=== PATIENT | female | born 2000 | race Caucasian/White ===

== ENCOUNTER 2020-01-04 16:25 | Emergency (ER) | payer MEDICAID, SELFPAY ==
[2020-01-04 16:56] VITALS: BP 120/80; PULSE 78; RESP 16; TEMP 36.3; O2SAT 100
[2020-01-04 17:15] LABS: Basophils Percent Auto 0.2 % (0.2-1.2); Eosinophils Absolute Auto 0.1 K/mm3 (0-0.3); Hematocrit 30.6 % (37.0-47.0); Hemoglobin 10.3 g/dL (12.0-15.0); Immature Granulocyte Absolute 0.04 K/mm3 (0.00-0.031); Immature Granulocyte Percent A 0.3 % (0-0.5); Lymphocytes Absolute Auto 2.47 K/mm3 (0.9-3.2); Lymphocytes Percent Auto 20.6 % (18.3-44.2); Mean Corpuscular HGB Conc 33.7 g/dl (32-36); Mean Corpuscular Hemoglobin 30.4 pg (26-34); Mean Corpuscular Volume 90.3 fl (80-100); Mean Platelet Volume 9.3 fl (7.4-10.4); Monocytes Absolute Auto 0.6 K/mm3 (0.1-0.6); Monocytes Percent Auto 5.2 % (2.6-8.5); Neutrophils Absolute Auto 8.7 K/mm3 (1.3-6.7); Neutrophils Percent Auto 72.7 % (45.5-73.1); Platelet Count Result 288 k/mm3 (150-375); Red Blood Count 3.39 M/mm3 (4.2-5.4); Red Cell Distribution Width 12.7 % (11.5-14.5)
[2020-01-04 17:27] LABS: Alanine Aminotransferase 21 U/L (4-35); Alkaline Phosphatase 34 U/L (45-116); Anion Gap 7 mmol/L (8-16); Aspartate Amino Transferase 29 U/L (14-36); Bilirubin,Total 0.2 mg/dL (0.2-1.3); Blood Urea Nitrogen 11 mg/dL (8-21); Calcium 8.6 mg/dL (8.9-10.7); Carbon Dioxide 27 mmol/L (22-30); Chloride 103 mmol/L (98-107); Estimated CRCL calculation 130 ml/min; Estimated Glomerular Filt Rate > 60; Glucose 79 mg/dL (65-105); Lipase 43 U/L (23-300); Potassium 3.6 mmol/L (3.4-5.0); Sodium 137 mmol/L (134-143)
[2020-01-04 18:24] VITALS: BP 129/59; PULSE 75; RESP 18; TEMP 36.6; O2SAT 100
[2020-01-04] MEDS: ACETAMINOPHEN 500 MG TABLET 1000 MG PO (18:29)
[2020-01-04 18:58] LABS: Add Urine Microscopic? YES; Appearance Urine Cloudy (Clear); Bacteria Urine 2+ /hpf; Bilirubin Urine Negative (Negative); Blood Urine 1+ (Negative); Color Urine Light Yellow (Yellow); Glucose Urine UA Negative (Negative); Ketones Urine Negative (Negative); Leukocyte Esterase Ur Negative LEU/UL (Negative); Mucus Urine Rare /lpf; Nitrate Urine Negative (Negative); Protein Urine Negative (Negative); RBC Urine 0-2 /hpf (0-2); Specific Grav Ur 1.006 (1.001-1.035); Squamous Epithelial Cell Urine Many /hpf (Few); Urobilinogen Urine Negative mg/dL (<2.0)
[2020-01-04 18:59] VITALS: TEMP 36.6
--- NOTE | 2020-01-04 19:15 | ED.ABDPAIN ---
HPI - Abdominal Pain General Chief Complaint: Abdominal Pain Stated Complaint: ABD pain 10 weeks Time Seen by Provider: 01/04/20 17:25 History of Present Illness HPI narrative: Patient is a 19-year-old female who presents to the ER with some lower abdominal discomfort. She reports its of burning pressure. Ongoing for the last day. No fevers or chills or sweats. No dysuria or hematuria. No vaginal bleeding or vaginal discharge. She has had 2 ultrasounds at [facility] that show she has an IUP. Patient reports modest constipation with last bowel movement either 2 days ago or 1 week ago she is unsure which. Patient reports she had some nausea last week and was seen at [facility] and prescribed some antinausea medicine but was only 4 tablets so she has not been taking it. She does take a vitamin. Related Data Home Medications Medication Instructions Recorded Confirmed [id number] fum-folic [id number] pkg PO DAILY 01/04/20 [Daily ] Allergies Allergy/AdvReac Type Severity Reaction Status Date / Time No Known Allergies Allergy Verified 01/04/20 18:28 Review of Systems Review of Systems: All systems reviewed & are unremarkable except as noted in HPI and below Constitutional: Constitutional: Denies chills, Denies fever(s) and Denies weakness Respiratory: Respiratory: Denies cough and Denies dyspnea Gastrointestinal: Gastrointestinal: Reports abdominal pain, Reports constipation, Denies diarrhea, Denies nausea and Denies vomiting Genitourinary: Genitourinary: Denies abnormal vaginal bleeding, Denies dysuria and Denies vaginal discharge PMFSH Past Medical History Medical History (Updated 01/04/20 @ 19:27 by Bertram Flores MD) Healthy female adult Surgical History Surgical History (Updated 01/04/20 @ 19:24 by Bertram Florse MD) No history of previous surgery Social History Social History (Updated 01/04/20 @ 19:24 by Bertram Flores MD) Smoking status: Former smoker Gender identity (if verbalized by the patient): Female Exam Narrative: Exam Narrative: GENERAL: Well-appearing, well-nourished, and in no acute distress. HEAD: Normocephalic, atraumatic. CHEST: Clear to auscultation. No respiratory distress. HEART: Regular rate and rhythm. Normal peripheral pulses. ABDOMEN: Soft, nontender, nondistended. EXTREMITIES: Normal range of motion. No edema. SKIN: Warm, dry, no rash. NEURO: Alert and oriented x3. PSYCH: Normal mood and affect. Course Course Emergency Course: Patient informed of results. Will give Keflex for possible early UTI. Also recommend patient increase fluid intake and take laxatives to help with her constipation. Bedside ultrasound shows an IUP with active heart rate. Keep follow-up with her OB on 01/09/2020. Vital Signs Vital signs: Vital Signs Temperature 97.4 F L 01/04/20 16:56 Pulse Rate 78 01/04/20 16:56 Respiratory Rate 16 01/04/20 16:56 Blood Pressure 120/80 01/04/20 16:56 Pulse Oximetry 100 01/04/20 16:56 Temperature 97.8 F 01/04/20 18:24 Pulse Rate 75 01/04/20 18:24 Respiratory Rate 18 01/04/20 18:24 Blood Pressure 129/59 L 01/04/20 18:24 Pulse Oximetry 100 01/04/20 18:24 MDM - Abdominal Pain Lab Data Result diagrams: 01/04/20 17:08 01/04/20 17:08 Labs: Lab Results 01/04/20 01/04/20 01/04/20 Range/Units 17:08 17:08 18:23 WBC 12.0 H (4.5-10.0) K/mm3 RBC 3.39 L (4.2-5.4) M/mm3 Hgb 10.3 L (12.0-15.0) g/dL Hct 30.6 L (37.0-47.0) % MCV 90.3 (80-100) fl MCH 30.4 (26-34) pg MCHC 33.7 (32-36) g/dl RDW 12.7 (11.5-14.5) % Plt Count 288 (150-375) k/mm3 MPV 9.3 (7.4-10.4) fl Immature Gran % (Auto) 0.3 (0-0.5) % Neut % (Auto) 72.7 (45.5-73.1) % Lymph % (Auto) 20.6 (18.3-44.2) % Barren % (Auto) 5.2 (2.6-8.5) % Eos % (Auto) 1.0 (0-4.4) % Baso % (Auto) 0.2 (0.2-1.2) % L
[2020-01-04 20:15] VITALS: BP 107/50; PULSE 85; RESP 12; TEMP 36.6; O2SAT 95
== END 2020-01-04 20:17 | disposition home or self-care (01) ==
PROVIDERS: Emergency Provider Emergency Medicine
DX: O26.891 Other specified pregnancy related conditions, first trimester (principal); R10.30 Lower abdominal pain, unspecified; O23.41 Unspecified infection of urinary tract in pregnancy, first trimester; O99.611 Diseases of the digestive system complicating pregnancy, first trimester; K59.00 Constipation, unspecified; Z87.891 Personal history of nicotine dependence; Z3A.10 10 weeks gestation of pregnancy
CPT/HCPCS: 36415; 80053; 81001; 81025; 83690; 85025; 99283; A9270

== ENCOUNTER 2020-07-09 14:49 | Outpatient (RCR) | payer OTHER, SELFPAY ==
--- NOTE | ~2020-07-09 | US_ITS ---
EXAMINATION: US OB follow up w [facility] DATE: 07/09/2020 15:59 INDICATION: Size smaller than dates. Decreased movement. Third trimester. TECHNIQUE: Real-time pelvic ultrasound was performed. COMPARISON: None. FINDINGS: There is a single living fetus in vertex presentation. The placenta is posterior. heart rate i s 161 beats per minute (bpm). The amniotic fluid index is 18.3 cm, which is normal. The following biometric data were obtained: Biparietal diameter (BPD): 8.9 cm; head circumference (HC): 31.8 cm; abdominal circumference (AC): 29 .4 cm; femur length (FL): 6.7 cm. These measurements are concordant. Estimated weight is 2351 g +/- 353 g, which correlates with 5th percentile when 07/31/20 is used as estimated date of delivery. As single measurements, these parameters are each equal to the following estimated gestational ages: BPD: 35 weeks 6 days. HC: 35 weeks 5 days. AC: 33 weeks 2 days. FL: 34 weeks 2 days. estimated gestational age based solely on measurements from this exam is 34 weeks 6 days +/- 2 weeks 3 days. Biophysical profile performed by the technologist: breathing (30 sec sustained breathing in 30 minutes): 2 out of 2 movement (3 gross body movements in 30 minutes): 2 out of 2 tone (one episode of uxhxxap-tgtjfbirv-dwjfkxw limb movement): 2 out of 2 Amniotic fluid pocket (2 cm): 2 out of 2 Total score: 8 out of 8 IMPRESSION: 1. Single living fetus in vertex presentation. 2. Small for gestational age. Estimated weight is 2351 g +/- 353 g, which correlates with 5th p ercentile when 07/31/20 is used as estimated date of delivery. 3. Biophysical profile 8 out of 8. Reviewed, dictated and finalized at location B. IMPRESSION: 1. Single living fetus in vertex presentation. 2. Small for gestational age. Estimated weight is 2351 g +/- 353 g, which correlates with 5th percentile when 07/31/20 is used as estimated date of delive ry. 3. Biophysical profile 8 out of 8.
[2020-07-09 15:25] VITALS: BP 113/69; PULSE 81
== END 2020-09-03 11:09 | disposition home or self-care (01) ==
LOC: ANHOBOP 14:49
PROVIDERS: Visit Provider Obstetrics & Gynecology
DX: O36.5930 Maternal care for other known or suspected poor fetal growth, third trimester, not applicable or unspecified (principal); Z3A.36 36 weeks gestation of pregnancy
CPT/HCPCS: 59025; 76816; 76819

== ENCOUNTER 2020-07-14 15:46 | Inpatient (IN) | payer OTHER, SELFPAY ==
[2020-07-14] VITALS (7 sets, daily range): BP systolic 93–129; BP diastolic 68–83; PULSE 91–117; RESP 16; TEMP 37; BMI 28.6
--- NOTE | 2020-07-14 15:46 | LDADM ---
This patient, Vanessa Myers, was admitted to Labor/Delivery/Recovery 103 on 07/14/20 at 15:46. Plans for labor, pain management and were discussed with patient. Patient/family oriented to hospital policies and general routines including ID bracelet, bed and alarms, visiting hours, pain management, procedures, bathroom and other care routines, personal items, smoking policy, room service/diet and guest tray routines, infant security routines, and visiting hours. Patient/Family are encouraged to report perceived risks to care and to ask questions if they do not understand what they are told or what they should do. See OBIX for further documentation.
--- OUTSIDE RECORDS SUMMARY | 2020-07-14 15:50 | XMS_ITS ---
:2000 Author Care Team Providers Name Role Phone Ivan Adkins Primary Care Provider Unavailable Allergies Code Code System Name Reaction Severity Status Onset NKDA ? Medications Name Status Start Date Stop Date ? ? cephalexin 500 mg capsule Active ? Not av ailable TK 1 C PO Q 12 H DOK 100 mg capsule Active ? Not available TK 1 C PO QD FeroSul 325 mg (65 mg iron) tablet Active ? Not available TAKE 1 TABLET BY MOUTH TWICE DAILY AFTER MEALS ondansetron 4 mg disintegrating tablet Completed ? 05/12/2020 DISSOLVE 1 TABLET IN MOUTH TWICE DAILY TO 4 TIMES DAILY prednisone 20 mg tablet Completed ? 01/09/20 20 TK 1 T PO QD WITH FOOD OR MILK promethazine-DM 6.25 mg-15 mg/5 mL oral syrup Completed ? 01/09/2020 TK 5 ML PO Q 4 TO 6 H PRF COUGH AND NAUSEA Notes: PNV gummies Problems Name Status Onset Date Source ? Active 01/09/2020 History Procedures Date Name Performed by ? ? SUPERVISORY IT SPECIALIST Surgery Information not avai lable Notes: genital warts removed 06/11/2020 US, Obstetric, 3Rd Trimester [place] [facility] (Imaging) [address], [place] [address] (Work Place) 07/09/2020 US, Obstetric, Follow-up Information not available 07/09/2020 US, Obstetric, Biophysical Profile Infor mation not available
--- OUTSIDE RECORDS SUMMARY | 2020-07-14 15:50 | XMS_ITS | Encounter Summary ---
:2000 Author Reason for Visit return OB visit Assessment and Plan 1. Routine care 2. Small for gestational age fet us ? US, obstetric, follow-up - growth US/position ? US, obstetric, biophysical profile ? non-stress test Discussion Note: None recorded.Patient educational handouts: No information available. Plan of Care Reminders Provider Appointments None recorded. ? ? Lab None recorded. ? ? Referral None recorded. ? ? Procedures None recorded. ? ? Surgeries None recorded. ? ? Imaging US, Obstetric, ? Follow-up 07/09/2020 ? US, Obstetric, ? Biophysical Profile 07/09/2020 ? Non-stress Test ? 07/09/2020 Medications Name Start Date ? ? FeroSul 325 mg (65 mg iron) tablet ? TAKE 1 TABLET BY MOUTH TWICE DAILY AFTER MEALS Notes: PNV gummies Medications Administered None recorded. Vitals Weight Blood Pressure 169.8 lbs 112/74 mm[Hg] Results Lab Results None recorded.
--- OUTSIDE RECORDS SUMMARY | 2020-07-14 15:50 | XMS_ITS | Encounter Summary ---
:2000 Author Reason for Visit return OB visit Assessment and Plan 1. Routine care ? streptococcus group B, cul ture, unspecified specimen Discussion Note: None recorded.Patient educational handouts: No information available. Plan of Care Reminders Provider Appointments None recorded. ? ? Lab Streptococcus ? Group B, Culture, 07/02/2020 Unspecified Specimen Referral None recorded. ? ? Procedures None recorded. ? ? Surgeries None recorded. ? ? Imaging None recorded. ? ? Medications Name Start Date ? ? FeroSul 325 mg (65 mg iron) tablet ? TAKE 1 TABLET BY MOUTH TWICE DAILY AFTER MEALS Notes: PNV gummies Medications Administered None recorded. Vitals Weight Blood Pressure 170.4 lbs 118/72 mm[Hg] Results Lab Results Date Name Specimen Result Interpretation Description Value Range Status Address ? 07/02/2020 Streptococcus ? Strep Gp negative negative Final [facility]: Group B, B RAPHAEL[facility]rflx [id number] Culture, Marie R d, Unspecified [place] Specimen Allergies Code Code System Name Reaction
--- OUTSIDE RECORDS SUMMARY | 2020-07-14 15:50 | XMS_ITS | Encounter Summary ---
:2000 Author Reason for Visit return OB visit Assessment and Plan 1. growth restriction ? cervical ripening and anastasia ction of labor (SURG) Discussion Note: None recorded.Patient educational handouts: No information available. Plan of Care Reminders Provider Appointments None ? ? recorded. Lab None ? ? recorded. Referral None ? ? recorded. Procedures None ? ? recorded. Surgeries [facility] Ripening and Induction 07/14/2020 (Admittin g) of Labor (SURG) Imaging None ? ? recorded. Medications Name Start Date ? ? FeroSul 325 mg (65 mg iron) tablet ? TAKE 1 TABLET BY MOUTH TWICE DAILY AFTER MEALS Notes: PNV gummies Medications Administered None recorded. Vitals Weight Blood Pressure 171.8 lbs 98/70 mm[Hg] Results Lab Results None recorded. Allergies Code Code System Name Reaction Severity Onset NKDA ? ? ? Problems Name Status Onset Date Source ? Active 01/09/2020 History Procedures Date Name Performed by ? ?
--- OUTSIDE RECORDS SUMMARY | 2020-07-14 15:51 | XMS_ITS | Encounter Summary ---
:2000 Author Reason for Visit return OB visit Assessment and Plan 1. Routine care ? glucose tolerance test, ge stational, 1-hour ? HIV (1+2) Ab screen, serum ? hemoglobin + hematocrit, b lood Discussion Note: None recorded.Patient educational handouts: No information available. Plan of Care Reminders Provider Appointments None recorded. ? ? Lab Glucose [facility] Tolerance Test, 05/12/2020 Gestational, 1-Hour ? HIV (1+2) Ab [facility] Screen, Serum 05/12/2020 ? Hemoglobin + [facility] Hematocrit, Blood 05/12/2020 Referral None recorded. ? ? Procedures None recorded. ? ? Surgeries None recorded. ? ? Imaging None recorded. ? ? Medications Name Start Date ? ? FeroSul 325 mg (65 mg iron) tablet ? TAKE 1 TABLET BY MOUTH TWICE DAILY AFTER MEALS Notes: PNV gummies Medications Administered None recorded. Vitals Height Weight Blood Pressure 5 ft 3 in 156 lbs 120/72 mm[Hg] Results Lab Results
--- OUTSIDE RECORDS SUMMARY | 2020-07-14 15:51 | XMS_ITS | Encounter Summary ---
:2000 Author Reason for Visit return OB visit Assessment and Plan 1. Routine care 2. Abnormal glucose tolerance te st ? glucose tolerance test, ge stational, 3-hour 3. Anemia ? ferrous sulfate 325 mg (65 mg iron) tablet Discussion Note: None recorded.Patient educational handouts: No information available. Plan of Care Reminders Provider Appointments None ? ? recorded. Lab Glucose [place] [facility] Tolerance Test, 05/28/2020 [facility] (Lab) Gestational, 3-Hour Referral None ? ? recorded. Procedures None ? ? recorded. Surgeries None ? ? recorded. Imaging None ? ? recorded. Medications Name Start Date ? ? FeroSul 325 mg (65 mg iron) tablet ? TAKE 1 TABLET BY MOUTH TWICE DAILY AFTER MEALS Notes: PNV gummies Medications Administered None recorded. Vitals Weight Blood Pressure 157 lbs 119/80 mm[Hg] Results Lab Results Date Name Specimen Result Interpretation Description Value Range Status Address ? 06/04/2020 Glucose ? Dose 100 gms ? Final [address] Tolerance Test, R [facility]ional Gestational, [facility] 3-Hour
--- OUTSIDE RECORDS SUMMARY | 2020-07-14 15:51 | XMS_ITS | Encounter Summary ---
:2000 Author Reason for Visit return OB visit OB - BP check - swelling in legs and fee t -nm Assessment and Plan 1. Routine care Discussion Note: None recorded.Patient educational handouts: No [...] Administered None recorded. Vitals Weight Blood Pressure 158 lbs 117/72 mm[Hg] Results Lab Results None recorded. Allergies Code Code System Name Reaction Severity Onset NKDA ? ? ? Problems Name Status Onset Date Source ? Active 01/09/2020 History Procedures Date Name Performed by ? ? ROTARY SHEAR OPERATOR Surgery Information not reece lopez Notes: genital warts
--- OUTSIDE RECORDS SUMMARY | 2020-07-14 15:51 | XMS_ITS ---
:2000 Author Care Team Providers Name Role Phone Ivan Adkins Primary Care Provider Unavailable Allergies Code Code System Name Reaction Severity Status Onset NKDA ? Medications Name Status Start Date Stop Date ? ? cephalexin 500 mg capsule Completed ? 2019 TK 1 C PO Q 12 H DOK 100 mg capsule Completed ? 01/09/2020 TK 1 C PO QD ferrous sulfate 325 mg (65 mg iron) Active ? Not available tablet ondansetron 4 mg disintegrating tablet Active ? Not available DISSOLVE 1 TABLET IN MOUTH TWICE DAILY TO 4 TIMES DAILY prednisone 20 mg tablet Completed ? 01/09/20 20 TK 1 T PO QD WITH FOOD OR MILK promethazine-DM 6.25 mg-15 mg/5 mL oral syrup Completed ? 01/09/2020 TK 5 ML PO Q 4 TO 6 H PRF COUGH AND NAUSEA Notes: PNV gummies Problems Name Status Onset Date Source ? Active 01/09/2020 ? Procedures Date Name Performed by ? ? NURSING EXECUTIVE Surgery Information not avai lable Notes: genital warts removed 01/09/2020 US, Obstetric, 1St Trimester [facility] (One Call Scheduling) [address] [place], [place] [address] (Work Place) 03/09/2020 US, Obstetric, Maternal [facility] (One Call Scheduling) Evaluation + Anatomy [address] [facility]
--- OUTSIDE RECORDS SUMMARY | 2020-07-14 15:51 | XMS_ITS | Encounter Summary ---
:2000 Author Reason for Visit return OB visit Assessment and Plan 1. Routine care 2. Small for gestational age fet us ? US, obstetric, 3rd trimest er - growth/position/fluid Discussion Note: None recorded.Patient educational handouts: No information available. Plan of Care Reminders Provider Appointments None ? ? recorded. Lab None ? ? recorded. Referral None ? ? recorded. Procedures None ? ? recorded. Surgeries None ? ? recorded. Imaging US, [place] [facility], 3Rd [facility] Tr[facility] (Imaging) Medications Name Start Date ? ? FeroSul 325 mg (65 mg iron) tablet ? TAKE 1 TABLET BY MOUTH TWICE DAILY AFTER MEALS Notes: PNV gummies Medications Administered None recorded. Vitals Weight Blood Pressure 164 lbs 124/78 mm[Hg] Results Lab Results None recorded. Allergies Code Code System Name Reaction Severity Onset NKDA ? ? ? Problems Name Status Onset Date Source ? Active 01/09/2020 History Procedures Date Name Performed by ?
[2020-07-14] MEDS: DINOPROSTONE 10 MG VAG INSERT VAGINAL (16:34)
[2020-07-14 16:45] LABS: Basophils Percent Auto 0.2 % (0.2-1.2); Eosinophils Absolute Auto 0.1 K/mm3 (0-0.3); Eosinophils Percent Auto 0.6 % (0-4.4); Hemoglobin 10.9 g/dL (12.0-15.0); Immature Granulocyte Absolute 0.04 K/mm3 (0.00-0.031); Immature Granulocyte Percent A 0.3 % (0-0.5); Lymphocytes Absolute Auto 1.67 K/mm3 (0.9-3.2); Mean Corpuscular Volume 90.9 fl (80-100); Mean Platelet Volume 10.3 fl (7.4-10.4); Monocytes Absolute Auto 0.8 K/mm3 (0.1-0.6); Monocytes Percent Auto 6.3 % (2.6-8.5); Neutrophils Absolute Auto 10.2 K/mm3 (1.3-6.7); Neutrophils Percent Auto 79.6 % (45.5-73.1); Platelet Count Result 286 k/mm3 (150-375); Red Blood Count 3.63 M/mm3 (4.2-5.4); Red Cell Distribution Width 13.4 % (11.5-14.5); White Blood Count 12.8 K/mm3 (4.5-10.0)
--- NOTE | 2020-07-14 17:01 | PM.IMHP ---
H&P: HPI History of Present Illness Date/Time: 07/14/20 17:01 Vanessa is a 20yo @ 38.0wks (ENMANUEL 07/28/20) who presented to L&D for cervical ripening due to severe IUGR; EFW @ 5%ile. She has had regular care w/ [facility]. He's moving good. No VB or LOF. Occasional contraction. She was FT/50/-3 in clinic earlier today. Her is complicated by: - IUGR; EFW 5%ile-- reassuring NST/BPP - Anemia on iron BID - Rubella, CMV, and parvo non-immune - Elevated glucola; normal 3hr OGTT Chief Complaint: induction of labor Review of Systems Review of Systems: All systems reviewed & are unremarkable except as noted in HPI and below (HPI) [facility] Past Medical History Medical History Healthy female adult Surgical History Surgical History No history of previous surgery Family History Family History Grandparent Brain cancer Social History Social History Smoking status: Former smoker Substance use: former Gender identity (if verbalized by the patient): Female Spiritual care concerns: No Meds Home Medications and Allergies Home Medications Medication Instructions Recorded Confirmed Type PNV cmb#95-ferrous fumarate-FA 1 tablet PO DAILY 07/02/20 07/14/20 History [] ferrous sulfate [Iron (ferrous 325 mg PO DAILY 07/02/20 07/14/20 History sulfate)] Allergies Allergy/AdvReac Type Severity Reaction Status Date / Time No Known Allergies Allergy Verified 01/04/20 18:28 Vital Signs Vital Signs - 24 hr 07/14/20 16:10 07/14/20 16:32 07/14/20 17:01 Pulse Rate 117 H 100 92 Blood Pressure 129/83 93/68 L 112/76 Exam Const: General: cooperative, healthy appearing, comfortable and no acute distress Resp: Effort & Inspection: normal respiratory effort and able to speak in complete sentences Cardio: Rate: regular rate GI: GI Palp: No abdominal tenderness and Yes Soft to palpation : Other: FHT's: 130's/ mod irma/ + accels/ no decels - cat 1 TOCO: irregular ctx's Cervix: FT/50/-3 Presentation: cephalic Membranes: intact Skin: General skin exam: normal color Neuro: General: patient oriented x3 Extrem: General: normal to inspection Psych: Affect: normal affect Attitude: cooperative H&P: Results Labs Labs: Short CBC 07/14/20 Range/Units 16:28 WBC 12.8 H (4.5-10.0) K/mm3 Hgb 10.9 L (12.0-15.0) g/dL Hct 33.0 L (37.0-47.0) % Plt Count 286 (150-375) k/mm3 Assessment and Plan Assessment and plan (1) IUGR (intrauterine growth restriction): Status: Acute (2) : Qualifiers: Weeks of gestation: 38 weeks Qualified Code(s): Z3A.38 - 38 weeks gestation of Code(s): Z34.90 - Encounter for supervision of normal , unspecified, unspecified trimester Status: Acute (3) Anemia affecting in third trimester: Code(s): O99.013 - Anemia complicating , third trimester Status: Acute Additional Plan - Admit for cervidil ripening overnight - Plan for pitocin in AM; AROM when jelani regularly/~3cm dilated - Continuous monitoring; reassuring - Anesthesia consult PRN pain - GBS negative
--- NOTE | 2020-07-14 17:11 | WPDHPUPDATE1 ---
History and Physical Update Update Date/Time: 07/14/20 17:11 History and Physical has been reviewed, including an updated exam of the patient. There are NO changes in the patient's condition. Risks, benefits, and alternatives have been discussed and questions answered. Patient agrees to proceed with procedure.
[2020-07-14 19:28] LABS: Amphetamine Screen Urine Negative (Negative); Barbiturate Screen Urine Negative (Negative); Benzodiazepines Screen Urine Negative (Negative); Cannabinoid Screen Urine Negative (Negative); Cocaine Screen Urine Negative (Negative); Methadone Screen Urine Negative (Negative); Opiate Screen Urine Negative (Negative); Phencyclidine Screen Urine Negative (Negative)
[2020-07-14] MEDS: diphenhydrAMINE HCl CAP 25 MG CAPSULE PO (23:12)
[2020-07-15] VITALS (164 sets, daily range): BP systolic 32–139; BP diastolic 13–107; PULSE 29–121; RESP 16; TEMP 36.6–37.1; O2SAT 82–100
[2020-07-15] MEDS: miSOPROStol 25 MCG TABLET VAGINAL ×2 (05:31→09:55)
--- NOTE | 2020-07-15 07:21 | PM.OBPNLAB ---
Pain Control Date/time seen: 07/15/20 07:10 Pain control: tolerating well Pelvic Exam Dilation (cm): 1 Effacement (%): 50 station: -2 Amniotic membrane status: Intact Contractions Contraction frequency: 2 (-5) Contraction pattern: Irregular Status status: Category l Comments: 140's/mod irma/ + accels/ no decels - cat 1 Assessment and Plan Assessment: induction ongoing Comments: - Cervidil removed @ 0430; cervix 150/-2 without regular contractions so Misoprostol 25mcg placed @ 0530 - If not jelani regularly and ripening still needed, will place another miso @ 0930 - Plan for AROM when jelani regularly/2-3cm dilated - FHTs reassuring; continuous monitoring - Anesthesia consult PRN pain
[2020-07-15 08:36] LABS: Rapid Plasma Reagin Non-Reactive (NonReactive)
[2020-07-15] MEDS: LANOLIN (LANSINOH) 7.5 GM CREAM 1 APPLIC TOPICAL (10:17)
--- NOTE | 2020-07-15 11:54 | WPDANESEPP ---
Anes - Eval Pre Procedure Procedure: labor epidural Date/Time: 07/15/20 11:54 Surgeon: Lucille Preop Diagnosis: Pain during labor Pre Op Diagnosis: Induction of Labor Patient Data Age: 20 Gender: F Height: 5 ft 5 in Weight: 78.18 kg Last Vital Signs Temp 36.6 C 07/15/20 10:00 Pulse 100 07/15/20 11:46 Resp 16 07/14/20 23:14 BP 121/72 07/15/20 11:46 Allergies Allergy/AdvReac Type Severity Reaction Status Date / Time No Known Allergies Allergy Verified 01/04/20 18:28 Home Medications Medication Instructions Recorded Confirmed Type PNV cmb#95-ferrous fumarate-FA 1 tablet PO DAILY 07/02/20 07/14/20 History [] ferrous sulfate [Iron (ferrous 325 mg PO DAILY 07/02/20 07/14/20 History sulfate)] Laboratory Tests 07/14/20 07/14/20 07/14/20 16:28 16:28 16:28 WBC 12.8 K/mm3 H K/mm3 (4.5-10.0) RBC 3.63 M/mm3 L M/mm3 (4.2-5.4) Hgb 10.9 g/dL L g/dL (12.0-15.0) Hct 33.0 % L % (37.0-47.0) MCV 90.9 fl fl (80-100) MCH 30.0 pg pg (26-34) MCHC 33.0 g/dl g/dl (32-36) RDW 13.4 % % (11.5-14.5) Plt Count 286 k/mm3 k/mm3 (150-375) MPV 10.3 fl fl (7.4-10.4) Immature Gran % (Auto) 0.3 % % (0-0.5) Neut % (Auto) 79.6 % H % (45.5-73.1) Lymph % (Auto) 13.0 % L % (18.3-44.2) Nicholas % (Auto) 6.3 % % (2.6-8.5) Eos % (Auto) 0.6 % % (0-4.4) Baso % (Auto) 0.2 % % (0.2-1.2) Lymph # (Auto) 1.67 K/mm3 K/mm3 (0.9-3.2) Nicholas # (Auto) 0.8 K/mm3 H K/mm3 (0.1-0.6) Eos # (Auto) 0.1 K/mm3 K/mm3 (0-0.3) Baso # (Auto) 0.0 K/mm3 K/mm3 (0.0-0.1) Abs Immat Gran (auto) 0.04 K/mm3 H K/mm3 (0.00-0.031) Absolute Neuts (auto) 10.2 K/mm3 H K/mm3 (1.3-6.7) Absolute Nucleated RBC 0.0 K/mm3 K/mm3 (0.0-0.012) Nucleated RBC % 0.0 % % (0.0-0.2) Urine Opiates Screen Urine Methadone Screen Ur Barbiturates Screen Ur Phencyclidine Scrn Ur Amphetamine Screen U Benzodiazepines Scrn Urine Cocaine Screen U Cannabinoids Screen RPR Non-reactive (NonReactive) Blood Type A Positive Antibody Screen Negative 07/14/20 19:06 WBC RBC Hgb Hct MCV MCH MCHC RDW Plt Count MPV Immature Gran % (Auto) Neut % (Auto) Lymph % (Auto) Nicholas % (Auto) Eos % (Auto) Baso % (Auto) Lymph # (Auto) Nicholas # (Auto) Eos # (Auto) Baso # (Auto) Abs Immat Gran (auto) Absolute Neuts (auto) Absolute Nucleated RBC Nucleated RBC % Urine Opiates Screen Negative (Negative) Urine Methadone Screen Negative (Negative) Ur Barbiturates Screen Negative (Negative) Ur Phencyclidine Scrn Negative (Negative) Ur Amphetamine Screen Negative (Negative) U Benzodiazepines Scrn Negative (Negative) Urine Cocaine Screen Negative (Negative) U Cannabinoids Screen Negative (Negative) RPR Blood Type Antibody Screen : gestational age (ENMANUEL 07/31/20) Patient hx anesthesia problems: none Family hx anesthesia problems: none PMFSH Past Medical History Medical History Healthy female adult Surgical History Surgical History No history of previous surgery Family History Family History Grandparent Brain cancer Social History Social History Smoking status: Former smoker Substance use: former Gender identity (if verbalized by the
--- NOTE | 2020-07-15 13:50 | PM.OBPNLAB ---
Pain Control Date/time seen: 07/15/20 13:50 Pain control: tolerating well Pelvic Exam Dilation (cm): 1 Effacement (%): 60 station: -2 Amniotic membrane status: Intact Contractions Contraction frequency: 2 Contraction pattern: Regular Status status: Category l Assessment and Plan Assessment: induction ongoing Comments: s/p cervidil and miso x2, cervix still needing ripening so brannon bulb w/ 30cc placed @ 1345 will start low dose pitocin
[2020-07-15] MEDS: OXYTOCIN 30 UNITS/NS 500 ML 30 UNITS/500 ML BAG IV CONT (13:59)
[2020-07-15] MEDS: LACTATED RINGERS 1,000 ML 125 ML IV CONT ×2 (13:59→15:43)
[2020-07-15] MEDS: fentaNYL CITRATE INJ (*CRX) 100 MCG/2 ML VIAL 50 MCG IV PUSH (14:53)
--- NOTE | 2020-07-15 18:21 | PM.OBPNLAB ---
Pain Control Date/time seen: 07/15/20 18:21 Pain control: epidural Pelvic Exam Dilation (cm): 4 (.5) Effacement (%): 70 station: -1 Amniotic membrane status: Ruptured (AROM, clear 1814) Contractions Monitor mode: Internal Contraction frequency: 2 Contraction pattern: Regular Status status: Category l Assessment and Plan Pitocin rate (mU/min): 8 Assessment: induction ongoing Plan: continuous present management Comments: s/p cervidil, miso x2, brannon balloon-- now making good cervical change comfortable w/ epidural continuous monitoring; reassuring heart tones
[2020-07-15] MEDS: ONDANSETRON INJ 4 MG/2 ML VIAL IV PUSH (20:08)
[2020-07-16] VITALS (59 sets, daily range): BP systolic 99–148; BP diastolic 49–84; PULSE 61–127; RESP 16–20; TEMP 36.4–37.6; O2SAT 78–100
[2020-07-16] MEDS: LACTATED RINGERS 1,000 ML 125 ML IV CONT (00:31)
--- NOTE | 2020-07-16 03:30 | PM.OBPRVD ---
OB - Delivery Note Procedure Delivery date: 07/16/20 Intrapartal events: Deceleration (IUGR) Induction method: per misoprostol protocol, per cervidil protocol and other (brannon balloon) Delivery augmentation: rupture of membranes and pitocin Delivery monitor: external FHT and internal uterine Route of delivery: Laceration Description: Labial (right) Delivery repair: vicryl Specimen: Yes Quantitative Blood Loss (ml): 100 Anesthesia type: Epidural Disposition: floor [place] Date of : 07/16/20 Time of : 03:07 Weeks of gestation at delivery: 38 gender: Male Weight (pounds): 5 Weight (ounces): 11 presentation: vertex position: Left Occiput Anterior Placenta delivery description: Expressed cord vessel description: 3 Vessels score one minute: 8 score five minutes: 9 Narrative: The patient progressed to complete dilation. She began pushing with good maternal effort for approximately 30 minutes. She delivered the head over intact perineum. No nuchal cord was palpated. She easily delivered the shoulders and body. The infant had spontaneous cry and was immediately placed skin to skin. Delayed cord clamping was performed. The umbilical cord was then clamped and cut. A segment of the cord was then collected for cord gases. The remaining cord blood was collected for typing. With Pitocin running and gentle downward traction on the umbilical cord, the placenta delivered without complications. Bimanual massage was performed and good uterine tone was noted. The cervix, vagina, and perineum were examined and a small right labial laceration was noted. A figure 8 using 3-0 Vicryl was placed and good hemostasis was noted. Minimal bleeding and good uterine tone were noted. Sponge, lap, instrument, needle counts were correct at the end of the procedure. Mom and baby were left bonding in the birthing suite in a stable condition.
[2020-07-16] MEDS: OXYTOCIN 30 UNITS/NS 500 ML 30 UNITS/500 ML BAG 125 UNITS IV CONT (03:43)
[2020-07-16] MEDS: IBUPROFEN 600 MG TABLET PO ×2 (05:04→19:42)
[2020-07-16] MEDS: BENZOCAINE 20% AER SPR (*SP) 56 GM CAN 1 SPRAY TOPICAL (05:30)
[2020-07-16] MEDS: WITCH HAZEL 40 PADS 1 PAD TOPICAL (05:30)
--- NOTE | 2020-07-16 05:47 | OBPPTRN ---
Patient transferred to post room #285 via wheelchair. Support person present. Oriented to unit, room, information board, rooming in, admission packet and security measures. Patient verbalizes understanding.
[2020-07-16] MEDS: MULTIVIT/MIN/PREN/FOL AC/IRON TABLET 1 TAB PO (10:12)
--- NOTE | 2020-07-16 11:45 | PC.NURSE ---
Mother called out for assist with feeding. Mother reports infant has eagerly latch for feedings. Mother has slight tenderness at times. Consulted with patient, reviewed feeding cues, frequencies, duration of feedings, feeding elimination flow sheet, and signs of adequate intake. Demonstrated stimulation techniques to wake infant for feeding. Assisted with infant to breast. Reviewed positioning/alignment in cross cradle, holding breast in ?U? hold and guided asymmetrical latch on. able to latch correctly after several attempts. nursed eagerly, with steady draws and occasional swallowing for short bursts followed by long pausing. Infant would release latch needing to be stimulated to wake. Assured mother this is normal for a to be sleepy. Infant would eagerly return to breast. Reviewed signs of a correct latch, effective nursing and suck swallow ratio. Infant was able to maintain latch without discomfort to mother. would slip to shallow latch. Demonstrated how to adjust latch more deeply while feeding. Mother reports she can feel change in latch. Nipple care reviewed of lanolin after feedings, warm compresses as needed. Suggested mother stimulate while feeding to increase stimulate, increase intake and to assist with maintaining deep latch. Instructed mother to call out for RN assistance if she is unable to latch infant for feeding or she has discomfort with nursing. Instructed feeding should be initiated three hours from start of last feeding or if feeding cues are noted before. Mother voiced understanding of information shared. Mother had many and care questions, reviewed all and reviewed Mom/Baby Care Guide. Mother reports she has a strong support system.
[2020-07-17] VITALS: BP 121/61; PULSE 81; RESP 16; TEMP 36.4; O2SAT 98
[2020-07-17 05:24] LABS: Hematocrit 31.5 % (37.0-47.0); Hemoglobin 10.5 g/dL (12.0-15.0)
--- NOTE | 2020-07-17 07:54 | P.DS_ITS ---
DS: Admitting Diagnosis Admitting Diagnosis Admitting Diagnosis: OB - DS: Summary OB Procedures : None OB Procedures Intrapartum: Spontaneous Vag Delivery OB Procedures: : None Time Spent with Patient Time attestation: Total time spent providing and/or coordinating discharge services: DS: Data Data Completed and Pending Pending studies at discharge: Pending at discharge 07/16/20 05:01 Surgical [PTH] Routine Labs on day of discharge: Labs from last 24 hours 07/17/20 04:08 Hgb 10.5 L Hct 31.5 L Discharge Plan Discharge Discharging Clinician: Ivan Adkins Patient Disposition: Home, Self-Care Activity: as tolerated Diet: as tolerated Patient Instructions: Antibiotic Form Stand Alone Forms: General Discharge Information Follow-up/Referrals: Ivan Adkins MD [Physician] - 3 Weeks Discharge Medications: New ibuprofen 600 mg Tablet 600 mg PO Q6H PRN (Reason: Cramping) Qty: 30 RF: 0 Continued ferrous sulfate [Iron (ferrous sulfate)] 325 mg (65 mg iron) Tablet 325 mg PO DAILY RF: 0 PNV cmb#[id number]-ferrous fumarate-FA [] 28 mg iron- 800 mcg Tablet 1 tablet PO DAILY RF: 0 Date of admission: 07/14/20 15:46 Primary Care Provider: PHYSICIAN,IMPLEMENTATION SERVICES ANALYST Admitting Provider: Ivan Adkins Attending physician on admission: Ivan Adkins Condition: Stable
[2020-07-17 08:45] VITALS: BP 110/73; PULSE 92; RESP 18; TEMP 36.3; O2SAT 97
[2020-07-17] MEDS: MULTIVIT/MIN/PREN/FOL AC/IRON TABLET 1 TAB PO (09:02)
[2020-07-17] MEDS: MEASLES,MUMPS,RUBELLA VACCINE 0.5 ML VIAL SUB-Q (09:02)
--- NOTE | 2020-07-17 09:47 | WPDANLDPN2 ---
Anes-Prog Note L&D Date/Time: 07/17/20 09:47 Comfortable throughout: labor Neuraxial method: epidural Epidural/Spinal procedure site: clean & non-tender Neuro status: Neuro function grossly intact. Cardiovascular status: normal Respiratory status: normal Airway patency: baseline Mental status: baseline Post-Op hydration status: normal Vital Signs: Last Vital Signs Temp 36.4 C 07/17/20 00:00 Pulse 81 07/17/20 00:00 Resp 16 07/17/20 00:00 BP 121/61 07/17/20 00:00 Pulse Ox 98 07/17/20 00:00 Pain score (VAS): 0 Post-procedural complaints: none Patient feedback: Patient satisfied with anesthetic care.
--- NOTE | 2020-07-17 12:30 | PC.NURSE ---
Mother called out for assessment of latch before discharge. Mother states she began with increasingly sore nipples during the night. Both nipples have bruised lines to center from possible shallow latch. Observed mother putting infant to breast in cradle position in shallow latch. Reviewed positioning/alignment in cross cradle, holding breast in U hold and guided asymmetrical latch on. was able to latch correctly. Mother quickly reported she can feel infant is latched more deeply and has minimal tenderness. Reviewed the rational of holding breast for latch and during entire feeding to assist with maintaining deep latch for her comfort and increased intake. Demonstrated how to adjust latch more deeply while feeding. nursed eagerly, with steady draws and frequent swallowing noted. Reviewed signs of a correct latch, effective nursing and suck swallow ratio. Infant was able to maintain latch without discomfort to mother. Nipple care reviewed of lanolin after each feeding, warm compresses and gel pads as needed. Mother voiced understanding of information shared. Mother is feeding as required and waking to feed if needed. Infant has had at least 8 effective feedings in the past 24 hours, and is currently meeting outcomes for weight, output, jaundice and feeding frequencies. Mother states she feels confident to continue effective at home. Reviewed transition to breast milk, signs of adequate intake, and engorgement/relief. Instructed to call ICP if intake/output less than required. Reviewed regular medications mother is taking. Information provided per Nedra. Reviewed community resources on the [facility] website and in the Mom/Baby guide. Information on outpatient services provided. Mother has no further questions at this time.
--- NOTE | 2020-07-17 13:25 | PC.NURSE ---
1325: Pt had no one to drive her home and she had her car in the parking lot since admission. Dr. Fernández aware of pt's situation and said it was okay for pt to drive home since she is not taking narcotics. Instructions given to pt to drive with caution. Pt. states her friend is coming up to the hospital in her own car to drive behind the pt all the way home to ensure that she gets home without difficulty.
== END 2020-07-17 13:25 | disposition home or self-care (01) | DRG 560 ==
LOC: ANHLDR 07-15 11:44 → ANHOB2 07-16 05:54
PROVIDERS: Admitting Provider Obstetrics & Gynecology; Visit Provider Obstetrics & Gynecology
DX: O36.5930 Maternal care for other known or suspected poor fetal growth, third trimester, not applicable or unspecified (principal); O99.02 Anemia complicating childbirth; D64.9 Anemia, unspecified; O76 Abnormality in fetal heart rate and rhythm complicating labor and delivery; O70.0 First degree perineal laceration during delivery; Z3A.38 38 weeks gestation of pregnancy; Z37.0 Single live birth
CPT/HCPCS: 36415; 80307; 85014; 85018; 85025; 86592; 86850; 86900; 86901; 88307; 90710; A9270; J2405; J2590; J2795; J3010; J7120

== ENCOUNTER 2020-10-15 09:44 | Outpatient (CLI) | payer OTHER, SELFPAY ==
[2020-10-15 10:34] LABS: Basophils Percent Auto 0.3 % (0.2-1.2); Eosinophils Absolute Auto 0.1 K/mm3 (0-0.3); Eosinophils Percent Auto 0.9 % (0-4.4); Hematocrit 37.1 % (37.0-47.0); Hemoglobin 11.9 g/dL (12.0-15.0); Immature Granulocyte Absolute 0.01 K/mm3 (0.00-0.031); Immature Granulocyte Percent A 0.1 % (0-0.5); Lymphocytes Absolute Auto 2.19 K/mm3 (0.9-3.2); Lymphocytes Percent Auto 31.9 % (18.3-44.2); Mean Corpuscular HGB Conc 32.1 g/dl (32-36); Mean Corpuscular Hemoglobin 29.2 pg (26-34); Mean Corpuscular Volume 91.2 fl (80-100); Mean Platelet Volume 9.5 fl (7.4-10.4); Monocytes Absolute Auto 0.5 K/mm3 (0.1-0.6); Monocytes Percent Auto 6.7 % (2.6-8.5); Neutrophils Absolute Auto 4.1 K/mm3 (1.3-6.7); Neutrophils Percent Auto 60.1 % (45.5-73.1); Platelet Count Result 360 k/mm3 (150-375); Red Blood Count 4.07 M/mm3 (4.2-5.4); Red Cell Distribution Width 12.7 % (11.5-14.5); White Blood Count 6.9 K/mm3 (4.5-10.0)
[2020-10-15 10:44] LABS: Alanine Aminotransferase 31 U/L (4-35); Albumin Level 4.7 g/dL (3.5-5.1); Alkaline Phosphatase 47 U/L (38-126); Anion Gap 9 mmol/L (8-16); Aspartate Amino Transferase 32 U/L (14-36); Blood Urea Nitrogen 9 mg/dL (7-17); Calcium 9.9 mg/dL (8.4-10.2); Carbon Dioxide 25 mmol/L (22-30); Chloride 102 mmol/L (98-107); Estimated Glomerular Filt Rate > 60; Glucose 105 mg/dL (65-110); Potassium 4.2 mmol/L (3.4-5.0); Sodium 136 mmol/L (137-145)
[2020-10-15 11:34] LABS: Iron 103 ug/dL (37-170)
[2020-10-15 11:46] LABS: Percent Iron Saturation 35 % (20-50)
== END 2020-10-15 09:45 | disposition home or self-care (01) ==
PROVIDERS: PCP Internal Medicine; Visit Provider Clinical Nurse Specialist
DX: O99.013 Anemia complicating pregnancy, third trimester (principal); Z3A.00 Weeks of gestation of pregnancy not specified; Z13.228 Encounter for screening for other metabolic disorders; D64.9 Anemia, unspecified
CPT/HCPCS: 36415; 80053; 82728; 83540; 83550; 85025

== ENCOUNTER 2021-02-24 14:52 | Outpatient (CLI) | payer OTHER, SELFPAY ==
[2021-02-24 15:35] LABS: Basophils Percent Auto 0.2 % (0.2-1.2); Eosinophils Percent Auto 0.2 % (0-4.4); Hematocrit 37.2 % (37.0-47.0); Hemoglobin 12.2 g/dL (12.0-15.0); Immature Granulocyte Absolute 0.02 K/mm3 (0.00-0.031); Immature Granulocyte Percent A 0.2 % (0-0.5); Lymphocytes Absolute Auto 2.74 K/mm3 (0.9-3.2); Lymphocytes Percent Auto 28.5 % (18.3-44.2); Mean Corpuscular HGB Conc 32.8 g/dl (32-36); Mean Corpuscular Hemoglobin 28.9 pg (26-34); Mean Corpuscular Volume 88.2 fl (80-100); Mean Platelet Volume 9.6 fl (7.4-10.4); Monocytes Percent Auto 10.5 % (2.6-8.5); Neutrophils Absolute Auto 5.8 K/mm3 (1.3-6.7); Neutrophils Percent Auto 60.4 % (45.5-73.1); Platelet Count Result 270 k/mm3 (150-375); Red Blood Count 4.22 M/mm3 (4.2-5.4); Red Cell Distribution Width 13.6 % (11.5-14.5); White Blood Count 9.6 K/mm3 (4.5-10.0)
== END 2021-02-24 14:53 | disposition home or self-care (01) ==
PROVIDERS: PCP Internal Medicine; Visit Provider Clinical Nurse Specialist
DX: D64.9 Anemia, unspecified (principal)
CPT/HCPCS: 36415; 85025

== ENCOUNTER 2022-06-28 12:41 | Emergency (ER) | payer OTHER, SELFPAY ==
[2022-06-28 12:51] VITALS: BP 119/60; PULSE 93; RESP 18; TEMP 36.4; O2SAT 99
[2022-06-28 13:40] LABS: Influenza A QL RT-PCR Negative (Negative); Influenza B QL RT-PCR Negative (Negative); RSV RNA, RT-PCR Negative (Negative); SARS-CoV-2 RNA PCR Negative (Negative)
[2022-06-28 14:22] LABS: Strep Group A RT-PCR NOT DETECTED (Negative)
--- NOTE | 2022-06-28 14:30 | ED.GENADULT ---
HPI - General Adult General Chief complaint: Unspecified Stated complaint: cough, body aches, ST Time Seen by Provider: 06/28/22 12:54 History of Present Illness HPI narrative: Patient presents with several days of URI symptoms including body aches, runny nose, sore throat, mild nausea, she has overall been feeling better but wanted to check to make sure things okay. Has been using some throat drops. Related Data Allergies Allergy/AdvReac Type Severity Reaction Status Date / Time No Known Allergies Allergy Verified 06/28/22 12:57 Review of Systems Review of Systems: CONST: chills HEENT:sore throat C/V: No chest pain RESP: No cough GI: mild nausea : No dysuria. M/S: Body aches SKIN: No rash. NEURO: [No headache or focal numbness or weakness] PSYCH: [No depression] [facility] Past Medical History Medical History (Updated 06/28/22 @ 14:34 by Lorelei Hurd MD) Anxiety Vaginal discharge Surgical History Surgical History No history of previous surgery Family History Family History Grandparent Alcoholism Hypertension Depression Anxiety Brain cancer Heart disease Father Alcoholism Hypertension Depression Anxiety Mother Depression Anxiety Hypertension Asthma Social History Social History Smoking packs per day: 0.25 Smoking cigarettes per day: 5.0 Smoking status: Current every day smoker Alcohol intake: current Substance use: current Substance use type: marijuana Gender identity (if verbalized by the patient): Female Spiritual care concerns: No Exam Narrative: EXAMINATION OF ORGAN SYSTEMS/BODY AREAS: Constitutional: Vital signs per nursing GENERAL:[No acute distress, non-toxic appearing.] HEAD: Normal with no signs of head trauma. EYES: EOMI, conjunctiva normal ENT: Normal clear pharynx, there is rhinorrhea LUNGS: Nonlabored breathing. HEART: [Regular rate and rhythm] ABD: [Soft], [nontender to palpation] EXT: Normal range of motion SKIN: [No rashes or lesions.] NEURO: [Alert and oriented x 3. No gross focal sensory or strength deficits.] PSYCH: Normal affect Course Vital Signs Vital signs: Vital Signs Temperature 97.6 F 06/28/22 12:51 Pulse Rate 93 06/28/22 12:51 Respiratory Rate 18 06/28/22 12:51 Blood Pressure 119/60 06/28/22 12:51 Pulse Oximetry 99 06/28/22 12:51 Oxygen Delivery Room Air 06/28/22 12:51 Temperature 97.6 F 06/28/22 12:51 Pulse Rate 93 06/28/22 12:51 Respiratory Rate 18 06/28/22 12:51 Blood Pressure 119/60 06/28/22 12:51 Pulse Oximetry 99 06/28/22 12:51 Oxygen Delivery Room Air 06/28/22 12:51 Medical Decision Making MDM Narrative Medical decision making narrative: ED COURSE AND MEDICAL DECISION MAKING: This 22 year old patient presents with symptoms most suggestive of viral upper respiratory tract infection. Well-appearing here with only some mild rhinorrhea on exam. Strep and COVID, RSV, flu swabs are negative. Patient is discharged home in stable condition with expectant management. Return precautions were provided. Procedures: Pulse oximetry interpretation - not hypoxic. Review of medical records. Vital Signs Vital Signs: Vital Signs Temperature 97.6 F 06/28/22 12:51 Pulse Rate 93 06/28/22 12:51 Respiratory Rate 18 06/28/22 12:51 Blood Pressure 119/60 06/28/22 12:51 Pulse Oximetry 99 06/28/22 12:51 Oxygen Delivery Room Air 06/28/22 12:51 Temperature 97.6 F 06/28/22 12:51 Pulse Rate 93 06/28/22 12:51 Respiratory Rate 18 06/28/22 12:51 Blood Pressure 119/60 06/28/22 12:51 Pulse Oximetry 99 06/28/22 12:51 Oxygen Delivery Room Air 06/28/22 12:51 Lab Data Labs: Lab Results 06/28/22 06/28/22 Range/Units 12:58 13:28 Influenza A (RT-PCR) Negative (N
== END 2022-06-28 14:50 | disposition home or self-care (01) ==
PROVIDERS: Emergency Provider Emergency Medicine; PCP Internal Medicine
DX: B34.9 Viral infection, unspecified (principal); Z20.822 Contact with and (suspected) exposure to COVID-19; F17.210 Nicotine dependence, cigarettes, uncomplicated
CPT/HCPCS: 87637; 87651; 99283

== ENCOUNTER 2024-10-07 10:10 | Emergency (ER) | payer SELFPAY ==
--- OUTSIDE RECORDS SUMMARY | 2024-10-07 10:19 | XMS_ITS | Clinical Summary ---
Author Organization [facility] Address [address] [place] [address] Care Team Providers Care Member Service Specialist Name Role Phone Unavailable Primary Care Provider Unavailabl e Source Comments [facility],non-owned Affiliates and Associated Physician Practices is amultiple site organization consisting of ambulatory clinics and hospital sitesin [place], [place], [place] and [place]. This disclosure is being madepursuant to the Care Everywhere program and may not contain all information available regarding this patient. Last updated 17.[facility] Allergies No known active allergies Medications * Be aware that medications may not be up to date on this document. Alwaysverify current medications with the patient. 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 Gender Identity Not on file Sexual Orientation Not on file Last Filed Vital Signs Vital Sign Reading Time Taken Comments Blood Pressure 98/62 04/17/2018 3:03 PM ELECTRIC LOCOMOTIVE FIRER/FIREMAN Pulse 107 04/17/2018 3:03 PM ELECTRIC LOCOMOTIVE FIRER/FIREMAN Temperature 37.1 C (98.7 F) 04/17/2018 3:03 PM ELECTRIC LOCOMOTIVE FIRER/FIREMAN Respiratory Rate 16 04/17/2018 3:03 PM ELECTRIC LOCOMOTIVE FIRER/FIREMAN Oxygen Saturation 98% 02/22/2017 5:48 PM ELECTRIC LOCOMOTIVE FIRER/FIREMAN Inhaled Oxygen Concentration - - Weight 59 kg (130 lb) 04/17/2018 3:03 PM ELECTRIC LOCOMOTIVE FIRER/FIREMAN Height 160 cm (5' 3) 04/17/2018 3:03 PM ELECTRIC LOCOMOTIVE FIRER/FIREMAN Body Mass Index 23.03 04/17/2018 3:03 PM ELECTRIC LOCOMOTIVE FIRER/FIREMAN Plan of Treatment Health Maintenance Due Date Last Done Comments HIV SCREENING 01/19/2015 HPV VACCINE (1 - 3-dose series) 01/19/2015 CHLAMYDIA/GONORRHEA SCREENING 2016 HEPATITIS C SCREENING 01/15/2018 DTAP/TDAP/TD VACCINES (1 - Tdap) 01/19/2019 HEPATITIS B VACCINE (1 of 3 - 19+ 3-dose series) 01/19/2019 COVID-19 VACCINE (1 - 2023-2 5 season) 2023 DEPRESSION SCREENING 02/28/2024 INFLUENZA VACCINE (#1) 2024 ZOSTER VACCINE (1 of 2) 01/19/2050 HIB VACCINE Aged Out No longer eligi ble based on patient's age to complete this topic MENINGOCOCCAL (Group B) VACC INE SHARED DECISION-MAKING Aged Out No longer eligibl e based on patient's age to complete this topic MENINGOCOCCAL GROUPS A/C/Y/W VACCINE Aged Out No longer eligible b ased on patient's age to complete this topic PNEUMOCOCCAL VACCINE Aged Out No long er eligible based on patient's age to complete this topic [place] [address] [place] [address]
[2024-10-07 10:40] VITALS: BP 114/63; PULSE 78; RESP 18; TEMP 36.6; O2SAT 100
[2024-10-07 10:56] LABS: BEDSIDEPREGUCG Positive (Negative)
[2024-10-07 11:05] LABS: Add Urine Microscopic? YES; Appearance Urine Clear (Clear); Glucose Urine UA Negative (Negative); Leukocyte Esterase Ur 1+ LEU/UL (Negative); Nitrate Urine Negative (Negative); Non Pathogenic Casts 0-2; Specific Grav Ur 1.005 (1.001-1.035)
--- OUTSIDE RECORDS SUMMARY | 2024-10-07 12:21 | XMS_ITS | Clinical Summary ---
Author Organization [facility] Address [address] [place] [place] [address] Care Team Providers Care Pens And Pencils Repairer Name Role Phone Unavailable Primary Care Provider Unavailabl e Source Comments [facility],non-owned Affiliates and Associated Physician Practices is amultiple site organization consisting of ambulatory clinics and hospital sitesin [place], [place], [place] and [place]. This disclosure is being madepursuant to the Care Everywhere program and may not contain all information available regarding this patient. 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 Gender Identity Not on file Sexual Orientation Not on file Last Filed Vital Signs Vital Sign Reading Time Taken Comments Blood Pressure 98/62 04/17/2018 3:03 PM SEPARATOR OPERATOR Pulse 107 04/17/2018 3:03 PM SEPARATOR OPERATOR Temperature 37.1 C (98.7 F) 04/17/2018 3:03 PM SEPARATOR OPERATOR Respiratory Rate 16 04/17/2018 3:03 PM SEPARATOR OPERATOR Oxygen Saturation 98% 02/22/2017 5:48 PM SEPARATOR OPERATOR Inhaled Oxygen Concentration - - Weight 59 kg (130 lb) 04/17/2018 3:03 PM SEPARATOR OPERATOR Height 160 cm (5' 3) 04/17/2018 3:03 PM SEPARATOR OPERATOR Body Mass Index 23.03 04/17/2018 3:03 PM SEPARATOR OPERATOR Plan of Treatment Health Maintenance Due Date [...] patient's age to complete this topic [place] [address] [place] [address]
--- NOTE | 2024-10-07 13:11 | ED_ITS ---
HPI - General Adult General Chief complaint: Unspecified Stated complaint: might be , hot flashes, left abd pain Time Seen by Provider: 10/07/24 11:53 History of Present Illness HPI narrative: Patient is a 24-year-old female who presents to the ER with a 2 day history of weakness, muscle aches, and increased urinary frequency. She reports her last menstrual period was 3 months ago. Patient endorses 1 previous 4 years ago. She denies any vaginal bleeding, abdominal cramping, or recent fevers. Patient denies any other medical history relevant to this ER visit. Related Data Allergies Allergy/AdvReac Type Severity Reaction Status Date / Time No Known Allergies Allergy Verified 10/07/24 11:54 Review of Systems Review of Systems: All systems reviewed & are unremarkable except as noted in HPI and below PMFSH Past Medical History Medical History Vaginal discharge Anxiety Surgical History Surgical History No history of previous surgery Family History Family History Grandparent Alcoholism Hypertension Depression Anxiety Brain cancer Heart disease Father Alcoholism Hypertension Depression Anxiety Mother Depression Anxiety Hypertension Asthma Social History Social History Smoking packs per day: 0.25 Smoking cigarettes per day: 5.0 Smoking status: Current every day smoker Alcohol intake: current Substance use: current Substance use type: marijuana Gender identity (if verbalized by the patient): Female Spiritual care concerns: No Exam Narrative: GENERAL: Well appearing, well-nourished, non-toxic, in no acute distress. HEAD: Normocephalic, atraumatic. NECK: Supple. No adenopathy, no masses. RESPIRATORY: Airway patent, respirations nonlabored. Clear to auscultation bilaterally, no rales, rhonchi, wheezing. CARDIOVASCULAR: Regular rate and rhythm without murmurs, rubs, or gallops. Peripheral pulses 2+ and equal bilaterally. ABDOMINAL: Soft, nontender, nondistended, no hepatosplenomegaly. Normoactive BS. MUSCULOSKELETAL: Moves all extremities. Strength/ROM intact without gross deformities. SKIN: Warm, dry, normal color. No rashes. NEURO: A&O X3. Speech clear. Cranial nerves II-XII intact. No ataxic movements. PSYCHIATRIC: Appropriate mood and affect. Normal interaction. Course Vital Signs Vital signs: Vital Signs Temperature 36.6 C 10/07/24 10:40 Pulse Rate 78 10/07/24 10:40 Respiratory Rate 18 10/07/24 10:40 Blood Pressure 114/63 10/07/24 10:40 Pulse Oximetry 100 10/07/24 10:40 Oxygen Delivery Room Air 10/07/24 10:40 Temperature 36.6 C 10/07/24 10:40 Pulse Rate 78 10/07/24 10:40 Respiratory Rate 18 10/07/24 10:40 Blood Pressure 114/63 10/07/24 10:40 Pulse Oximetry 100 10/07/24 10:40 Oxygen Delivery Room Air 10/07/24 10:40 Medical Decision Making MDM Narrative Medical decision making narrative: Patient is a 24-year-old female who presents to the ER with a 2 day history of weakness, muscle aches, and increased urinary frequency. She reports her last menstrual period was 3 months ago. Patient endorses 1 previous 4 years ago. She denies any vaginal bleeding, abdominal cramping, or recent fevers. Patient denies any other medical history relevant to this ER visit. Labs Ordered: UA, urine bedside Imaging Ordered: None necessary Medications Ordered: Keflex p.o. Results: Patient's urinalysis indicates she has a UTI. Diagnosis: Urinary tract infection, positive test Patient Education/Shared MDM: Results of lab work shared with patient. She declined further blood work or workup at this time. Patient reports she has an OBGYN from last time she was . She reports she will follow-up with them as soon as possible. Patient strongly advised to maintain hydration status upon discharge. She will be discharged home with a prescription for Keflex. Strict return precautions provided. Patient verbalized understanding and is in agreement with plan. Vital signs stable at time of discharge. All questions answered. Vital Signs Vital Signs: Vital Signs Temperature 36.6 C 10/07/24 10:40 Pulse Rate 78 10/07/24 10:40 Respiratory Rate 18 10/07/24 10:40 Blood Pressure 114/63 10/07/24 10:40 Pulse Oximetry 100 08/11/25 10:40 Oxygen Delivery Room Air 10/07/24 10:40 Temperature 36.6 C 10/07/24 10:40 Pulse Rate 78 10/07/24 10:40 Respiratory Rate 18 10/07/24 10:40 Blood Pressure 114/63 10/07/24 10:40 Pulse Oximetry 100 10/07/24 10:40 Oxygen Delivery Room Air 10/07/24 10:40 Lab Data Lab results reviewed: Yes I reviewed the patient's lab results. Labs: Lab Results 10/07/24 10/07/24 Range/Units 10:47 10:55 Urine Color Yellow (Yellow) Urine Appearance Clear (Clear) Urine pH 8.0 (5.0-9.0) Ur Specific [place] 1.005 (1.001-1.035) Urine Protein Negative (Negative) mg/dL Urine Glucose (UA) Negative (Negative) mg/dL Urine Ketones Negative (Negative) mg/dL Ur Blood (Man) Negative (Negative) Urine Nitrate Negative (Negative) Urine Bilirubin Negative (Negative) Urine Urobilinogen 0.2 (<2.0) mg/dL Leukocyte Esterase Rfl 1+ H (Negative) JIMMY/UL Urine RBC 0-2 (0-2) /hpf Urine WBC 11-20 H (0-3) /hpf Ur Squamous Epith Cells None seen (Few) /hpf Urine Bacteria None seen /hpf Urine Casts 0-2 POC Urine HCG, Qual Positive (Negative) Discharge Plan Discharge Clinical Impression: Urinary tract infection, Early stage of Patient Disposition: Home Condition: Stable Instructions: Antibiotic Form Additional Instructions: Please return to the ER with any worsening symptoms. Follow-up with your OBGYN as soon as possible. Please complete your full dose of antibiotics. Remember to drink lots of water. You may take Tylenol as needed for pain control. Patient Language: [place] Prescriptions: New cephalexin 500 mg capsule 500 mg PO Q8H 7 Days Qty: 21 0RF No Action acetaminophen [Tylenol Extra Strength] 500 mg tablet 1,000 mg PO Q6H PRN (Reason: pain) Qty: 50 0RF ondansetron 4 mg tablet,disintegrating 4 mg PO Q8H PRN (Reason: nausea and vomiting) Qty: 10 0RF fluticasone propionate [Allergy Relief (fluticasone)] 50 mcg/actuation spray,suspension 1 spray intranasal DAILY Qty: 16 0RF Rx Instructions: administer into each nostril loratadine 10 mg tablet 10 mg PO DAILY Qty: 30 0RF fluconazole [Diflucan] 150 mg tablet 150 mg PO Q72H Qty: 2 0RF Rx Instructions: as a single dose Follow-up/Referrals: Issac Solorzano, [Primary Care Provider] - Stand Alone Forms: Work/School Release IP
[2024-10-07] MEDS: CEPHALEXIN 500 MG CAPSULE PO (13:31)
[2024-10-07 13:38] VITALS: BP 110/74; PULSE 72; RESP 16; O2SAT 99
== END 2024-10-07 13:48 | disposition home or self-care (01) ==
PROVIDERS: Emergency Provider Registered Nurse; PCP Internal Medicine
DX: O23.41 Unspecified infection of urinary tract in pregnancy, first trimester (principal); N39.0 Urinary tract infection, site not specified; O99.331 Smoking (tobacco) complicating pregnancy, first trimester; F17.210 Nicotine dependence, cigarettes, uncomplicated; Z3A.01 Less than 8 weeks gestation of pregnancy
CPT/HCPCS: 81001; 81025; 87086; 99283; A9270

== ENCOUNTER 2024-11-07 09:51 | Emergency (ER) | payer SELFPAY ==
--- NOTE | ~2024-11-07 | US_ITS ---
EXAMINATION: US OB <=14 wk fetus w TV DATE: 11/07/2024 12:18 INDICATION: Lower abdominal pain during first trimester . TECHNIQUE: Real-time pelvic ultrasound utilizing both a transvaginal and transabdominal probe was performed. The interpreting radiologist was not present for the study. COMPARISON: None. FINDINGS: The uterus measures 6.4 x 3.1 x 5.6 cm. The endometrial complex measures 10 mm in thickness. There is no evident intrauterine gestational sac. The right ovary measures 2.9 x 2.8 x 2.1 cm. The left ovary measures 2.5 x 2.1 x 1.8 cm. There are a few bilateral subcentimeter anechoic ovarian cysts/follicles. There is a small amount of free fluid in the cul-de-sac. IMPRESSION: 1. No evident intrauterine gestational sac. Differential would include early , failed or ectopic . 2. Small amount of anechoic free fluid in the cul-de-sac. Reviewed, dictated and finalized at location A. IMPRESSION: 1. No evident intrauterine gestational sac. Differential would include early pr egnancy, failed or ectopic . 2. Small amount of anechoic free fluid in the cul-de-sac.
--- NOTE | ~2024-11-07 | CT_ITS ---
CT abdomen pelvis w con Clinical History: LLQ abdominal pain . Comparison: Pelvic ultrasound today Technique: Axial images lung bases to symphysis pubis 100 mL Omnipaque 350 Coronal, sagittal reformats CT images acquired with automatic exposure control for dose reduction DLP: 204 mGy-cm Findings: Lung bases: Clear. Visualized heart and pericardium: Unremarkable. Liver: Unremarkable. Gallbladder: Probable stones. Spleen: Unremarkable. Small spleno-mesenteric shunt. Pancreas: Unremarkable. Adrenal glands: Unremarkable. Kidneys: Right kidney- No hydronephrosis. No renal stones. Left kidney- No hydronephrosis. No renal stones. Distal esophagus/stomach: Unremarkable. Small bowel loops: Normal caliber and wall thickness. Colon: Normal caliber and wall thickness. Normal RLQ appendix. Nodes: No enlarged nodes. Peritoneum: No ascites. No free air. Urinary bladder: Unremarkable. Uterus: Retroflexed. Adnexa: No masses. Corpus luteal cyst right side. Bones: No acute bony abnormality. Soft tissues: Unremarkable. Aorta: No aneurysm or dissection. IVC: Unremarkable. Main portal vein/SMV/splenic vein: Patent. IMPRESSION: 1. No acute findings. Reviewed, dictated and finalized at location R. IMPRESSION: 1. No acute findings.
[2024-11-07 09:59] VITALS: BP 122/85; PULSE 74; RESP 18; TEMP 36.4
--- NOTE | 2024-11-07 11:40 | ED_ITS ---
HPI - Abdominal Pain General Chief Complaint: Abdominal Pain Stated Complaint: abdominal pain after miscarriage 2-3 wks ago Time Seen by Provider: 11/07/24 09:58 History of Present Illness HPI narrative: Patient is a 24-year-old female who presents to the ER with abdominal pain. She reports 2 weeks ago she was here and was told she was . Several days later she started experiencing vaginal bleeding and was told she was having a miscarriage by her OBGYN. Her abdominal pain and vaginal bleeding have since subsided. This morning, approximately 1-2 hours prior to arrival, patient started experiencing severe left lower quadrant pain. She denies any urinary symptoms, nausea/vomiting, or new vaginal bleeding. Patient denies any medical history relevant to this ER visit. She reports she has been once prior to this and has 1 living child. Related Data Allergies Allergy/AdvReac Type Severity Reaction Status Date / Time No Known Allergies Allergy Verified 11/07/24 10:02 Review of Systems 2 Review of Systems: All systems reviewed & are unremarkable except as noted in HPI and below PMFSH Past Medical History Medical History Vaginal discharge Anxiety Surgical History Surgical History No history of previous surgery Family History Family History Grandparent Alcoholism Hypertension Depression Anxiety Brain cancer Heart disease Father Alcoholism Hypertension Depression Anxiety Mother Depression Anxiety Hypertension Asthma Social History Social History Smoking packs per day: 0.25 Smoking cigarettes per day: 5.0 Smoking status: Current every day smoker Alcohol intake: current Substance use: current Substance use type: marijuana Gender identity (if verbalized by the patient): Female Spiritual care concerns: No Exam 2 Narrative: GENERAL: Ill appearing, well-nourished, non-toxic, in no acute distress. HEAD: Normocephalic, atraumatic. NECK: Supple. No adenopathy, no masses. RESPIRATORY: Airway patent, respirations nonlabored. Clear to auscultation bilaterally, no rales, rhonchi, wheezing. CARDIOVASCULAR: Regular rate and rhythm without murmurs, rubs, or gallops. Peripheral pulses 2+ and equal bilaterally. ABDOMINAL: Soft, bilateral lower abdominal tenderness, nondistended, no hepatosplenomegaly. Normoactive BS. MUSCULOSKELETAL: Moves all extremities. Strength/ROM intact without gross deformities. SKIN: Warm, dry, normal color. No rashes. NEURO: A&O X3. Speech clear. Cranial nerves II-XII intact. No ataxic movements. PSYCHIATRIC: Appropriate mood and affect. Normal interaction. Course Vital Signs Vital signs: Vital Signs Temperature 36.4 C 11/07/24 09:59 Pulse Rate 74 11/07/24 09:59 Respiratory Rate 18 11/07/24 09:59 Blood Pressure 122/85 11/07/24 09:59 Temperature 36.4 C 11/07/24 09:59 Pulse Rate 64 11/07/24 12:24 Respiratory Rate 24 H 11/07/24 12:24 Blood Pressure 108/76 11/07/24 12:24 Pulse Oximetry 100 11/07/24 12:24 MDM - Abdominal Pain MDM Narrative Medical decision making narrative: Patient is a 24-year-old female who presents to the ER with abdominal pain. She reports 2 weeks ago she was here and was told she was . Several days later she started experiencing vaginal bleeding and was told she was having a miscarriage by her OBGYN. Her abdominal pain and vaginal bleeding have since subsided. This morning, approximately 1-2 hours prior to arrival, patient started experiencing severe left lower quadrant pain. She denies any urinary symptoms, nausea/vomiting, or new vaginal bleeding. Patient denies any medical history relevant to this ER visit. She reports she has been once prior to this and has 1 living child. Labs Ordered: CBC, CMP, beta hCG, UA Imaging Ordered: CT abdomen pelvis, ultrasound Ob Medications Ordered: Results: Patient's CBC indicates a red blood cell count of 3.74, hemoglobin of 11.1, hematocrit of 33.8%. Her chemistry indicates a sodium of 136, and creatinine of 0.68. Patient's beta hCG was less than 2.39. Her urinalysis indicates 1+ leukocytes, but no wbcs. Diagnosis: Abdominal pain Patient Education/Shared MDM: Results of lab work and imaging shared with patient. She continues to decline pain medication administration. Patient strongly advised to maintain hydration status upon discharge and follow-up with her OBGYN and PCP as needed. She will be discharged home with a prescription for Bentyl. Strict return precautions provided. Patient verbalized understanding and is in agreement with plan. Vital signs stable at time of discharge. All questions answered. Differential Diagnosis Differential diagnosis: Likely abdominal pain, acute appendicitis, constipation and gastroenteritis Lab Data Attestation: I reviewed the patient's lab results. 11/07/24 12:12 11/07/24 12:12 Labs: Lab Results 11/07/24 Range/Units 12:12 WBC 7.2 (4.5-10.0) K/mm3 RBC 3.74 L (4.2-5.4) M/mm3 Hgb 11.1 L (12.0-15.0) g/dL Hct 33.8 L (37.0-47.0) % MCV 90.4 (80-100) fl MCH 29.7 (26-34) pg MCHC 32.8 (32-36) g/dl RDW 13.8 (11.5-14.5) % Plt Count 275 (150-375) k/mm3 MPV 9.3 (7.4-10.4) fl Immature Gran % (Auto) 0.3 (0-0.5) % Neut % (Auto) 52.8 (45.5-73.1) % Lymph % (Auto) 38.9 (18.3-44.2) % [place] % (Auto) 7.1 (2.6-8.5) % Eos % (Auto) 0.6 (0-4.4) % Baso % (Auto) 0.3 (0.2-1.2) % Lymph # (Auto) 2.80 (0.9-3.2) K/mm3 [place] # (Auto) 0.5 (0.1-0.6) K/mm3 Eos # (Auto) 0.0 (0-0.3) K/mm3 Baso # (Auto) 0.0 (0.0-0.1) K/mm3 Abs Immat Gran (auto) 0.02 (0.00-0.031) K/mm3 Absolute Neuts (auto) 3.8 (1.3-6.7) K/mm3 Absolute Nucleated RBC 0.000 (0.0-0.012) K/mm3 Nucleated RBC % 0.0 (0.0-0.2) % Sodium 136 L (137-145) mmol/L Potassium 3.7 (3.4-5.0) mmol/L Chloride 103 (98-107) mmol/L Carbon Dioxide 24 (22-30) mmol/L Anion Gap 9 (4-12) mmol/L BUN 11 (7-17) mg/dL Creatinine 0.68 L (0.7-1.0) mg/dL Estim Creat Clear Calc 99 ml/min Estimated GFR > 60 (59 - ) Glucose 85 (65-110) mg/dL Calcium 9.4 (8.4-10.2) mg/dL Total Bilirubin 0.7 (0.2-1.3) mg/dL AST 34 (14-36) U/L ALT 24 (6-35) U/L Alkaline Phosphatase 49 (38-126) U/L Total Protein 7.6 (6.3-8.2) g/dL Albumin 4.4 (3.5-5.1) g/dL Beta HCG, Quant < 2.39 mIU/ML Urine Color Yellow (Yellow) Urine Appearance Clear (Clear) Urine pH 7.0 (5.0-9.0) Ur Specific [place] 1.003 (1.001-1.035) Urine Protein Negative (Negative) mg/dL Urine Glucose (UA) Negative (Negative) mg/dL Urine Ketones Negative (Negative) mg/dL Ur Blood (Man) Negative (Negative) Urine Nitrate Negative (Negative) Urine Bilirubin Negative (Negative) Urine Urobilinogen 0.2 (<2.0) mg/dL Add Ur Microanalysis Reviewed Leukocyte Esterase Rfl 1+ H (Negative) JIMMY/UL Urine RBC 0-2 (0-2) /hpf Urine WBC 0-5 (0-3) /hpf Ur Squamous Epith Cells None seen (Few) /hpf Urine Bacteria None seen /hpf Urine Casts 0-2 Imaging Data Attestation: I personally reviewed and interpreted this imaging study as follows: Radiologist's impression: ITS Impressions Obstetrics Ultrasound 11/07/24 12:41 IMPRESSION: 1. No evident intrauterine gestational sac. Differential would include early , failed or ectopic . 2. Small amount of anechoic free fluid in the cul-de-sac. Abdomen/Pelvis CT 11/07/24 14:03 IMPRESSION: 1. No acute findings. Discharge Plan Discharge Clinical Impression: Abdominal pain Patient Disposition: Home Condition: Stable Instructions: Antibiotic Form, Abdominal Pain (ED) Additional Instructions: Please return to the ER with any worsening symptoms. Follow-up with primary care provider as needed. Take all medications as prescribed, including regularly scheduled medications. If you developed more abdominal pain you may take Bentyl as needed. Patient Language: Divehi Prescriptions: New dicyclomine 20 mg tablet 20 mg PO TID Qty: 10 0RF No Action acetaminophen [Tylenol Extra Strength] 500 mg tablet 1,000 mg PO Q6H PRN (Reason: pain) Qty: 50 0RF ondansetron 4 mg tablet,disintegrating 4 mg PO Q8H PRN (Reason: nausea and vomiting) Qty: 10 0RF fluticasone propionate [Allergy Relief (fluticasone)] 50 mcg/actuation spray,suspension 1 spray intranasal DAILY Qty: 16 0RF Rx Instructions: administer into each nostril loratadine 10 mg tablet 10 mg PO DAILY Qty: 30 0RF cephalexin 500 mg capsule 500 mg PO Q8H 7 Days Qty: 21 0RF fluconazole [Diflucan] 150 mg tablet 150 mg PO Q72H Qty: 2 0RF Rx Instructions: as a single dose Follow-up/Referrals: Issac Solorzano, [Primary Care Provider, Internal Medicine] Stand Alone Forms: Work/School Release IP Time of Disposition: 15:17
[2024-11-07 12:22] LABS: Hematocrit 33.8 % (37.0-47.0); Hemoglobin 11.1 g/dL (12.0-15.0); Immature Granulocyte Percent A 0.3 % (0-0.5); Lymphocytes Absolute Auto 2.80 K/mm3 (0.9-3.2); Mean Corpuscular HGB Conc 32.8 g/dl (32-36); Mean Corpuscular Hemoglobin 29.7 pg (26-34); Mean Corpuscular Volume 90.4 fl (80-100); Nucleated Red Blood Cells Absolute Auto 0.000 K/mm3 (0.0-0.012); Nucleated Red Blood Cells Perc 0.0 % (0.0-0.2); Platelet Count Result 275 k/mm3 (150-375); Red Blood Count 3.74 M/mm3 (4.2-5.4); White Blood Count 7.2 K/mm3 (4.5-10.0)
[2024-11-07 12:24] VITALS: BP 108/76; PULSE 64; RESP 24; O2SAT 100
[2024-11-07 12:40] LABS: Alanine Aminotransferase 24 U/L (6-35); Albumin Level 4.4 g/dL (3.5-5.1); Alkaline Phosphatase 49 U/L (38-126); Anion Gap 9 mmol/L (4-12); Aspartate Amino Transferase 34 U/L (14-36); Bilirubin,Total 0.7 mg/dL (0.2-1.3); Blood Urea Nitrogen 11 mg/dL (7-17); Calcium 9.4 mg/dL (8.4-10.2); Carbon Dioxide 24 mmol/L (22-30); Chloride 103 mmol/L (98-107); Estimated CRCL calculation 99 ml/min; Estimated Glomerular Filt Rate > 60; Glucose 85 mg/dL (65-110); Potassium 3.7 mmol/L (3.4-5.0); Sodium 136 mmol/L (137-145); Total Protein 7.6 g/dL (6.3-8.2)
[2024-11-07 12:48] LABS: Add Urine Microscopic? YES; Appearance Urine Clear (Clear); Glucose Urine UA Negative (Negative); Leukocyte Esterase Ur 1+ LEU/UL (Negative); Need Manual Microscopic Reviewed; Nitrate Urine Negative (Negative); Non Pathogenic Casts 0-2; Specific Grav Ur 1.003 (1.001-1.035)
[2024-11-07 12:56] LABS: Beta HCG Quantitative < 2.39 mIU/ML
[2024-11-07 15:30] VITALS: BP 97/77; PULSE 60; O2SAT 99
== END 2024-11-07 15:30 | disposition home or self-care (01) ==
PROVIDERS: Emergency Provider Registered Nurse; PCP Internal Medicine
DX: R10.32 Left lower quadrant pain (principal); F17.210 Nicotine dependence, cigarettes, uncomplicated
CPT/HCPCS: 36415; 74177; 76801; 76817; 80053; 81001; 84702; 85025; 87086; 99284; Q9967